=== PATIENT | male | born 1965 | race American Indian/Alaskan Native ===

== ENCOUNTER 2020-11-04 01:05 | Emergency (ER) | payer MEDICAID ==
[2020-11-04 01:54] VITALS: BP 130/63
--- NOTE | 2020-11-04 03:14 | XRay Report ---
CHEST 2 VIEWS INDICATION / CLINICAL INFORMATION: SYDNEY and cough. COMPARISON: None available. FINDINGS: SUPPORT DEVICES: None. HEART / MEDIASTINUM: No significant abnormality. LUNGS / PLEURA: No significant pulmonary or pleural abnormality. No pneumothorax. ADDITIONAL FINDINGS: Mild shaped thoracic scoliosis. IMPRESSION: 1. No acute findings. Signer Name: Corky Rueda MD Signed: 11/04/2020 3:10 AM Workstation Name: [id number]
[2020-11-04] MEDS ORDERED: predniSONE 20 MG TAB PO ONE (05:39)
[2020-11-04] MEDS ORDERED: diphenhydrAMINE 25 MG CAP PO ONE (05:39)
[2020-11-04] MEDS ORDERED: ALBUTEROL 2.5 MG/3 ML NEBU IH ONE (05:39)
[2020-11-04] MEDS ORDERED: ACETAMINOPHEN 500 MG TAB PO ONE (05:39)
--- NOTE | 2020-11-04 05:49 | Emergency Department Report ---
ED General Adult HPI - General Chief complaint: Upper Respiratory Infection Stated complaint: DIZZY,SYDNEY Time Seen by Provider: 11/04/20 05:33 Source: patient Mode of arrival: Ambulatory Limitations: No Limitations - History of Present Illness Initial comments: Patient is a 54-year-old -Nepalese male with a history of asthma CVA and dizziness for the past 5 years. Patient states he has experienced increased head congestion , sinus pain with postnasal drip and rhinorrhea for the past 3 days. Patient states sinuses are increasing dizziness. Patient is followed by primary care doctor Dr. CARMONA. There is no CP, SOB, no N/V, Fever or chills. Pt has had similar symptom exacerbations in past 5 years. pt drove self to ed, pt is a/o x 3, ambulatory with steady gait at this time. - Related Data Previous Rx's Medication Instructions Recorded Last Taken Type Albuterol Mdi (or & Nicu Only) 2 puff IH QID PRN #8.5 gram 11/04/20 Unknown Rx [ProAir HFA Inhaler] diphenhydrAMINE [Benadryl CAP] 25 mg PO Q8HR PRN #30 capsule 11/04/20 Unknown Rx predniSONE [Deltasone] 40 mg PO QDAY 5 Days #10 tab 11/04/20 Unknown Rx Allergies Allergy/AdvReac Type Severity Reaction Status Date / Time No Known Allergies Allergy Unverified 11/04/20 01:54 ED Review of Systems ROS: Stated complaint: DIZZY,SYDNEY Other details as noted in HPI Constitutional: denies: chills, fever Eyes: denies: eye pain, eye discharge, vision change ENT: congestion, other (sinus pain and pressure) Respiratory: denies: cough, shortness of breath, wheezing Cardiovascular: denies: chest pain, palpitations Endocrine: no symptoms reported Gastrointestinal: denies: abdominal pain, nausea, diarrhea Genitourinary: denies: urgency, dysuria Musculoskeletal: denies: back pain, joint swelling, arthralgia Skin: denies: rash, lesions Neurological: vertigo. denies: headache, weakness, paresthesias Psychiatric: anxiety. denies: depression Hematological/Lymphatic: denies: easy bleeding, easy bruising ED Past Medical Hx - Past Medical History Previous Medical History?: Yes Hx CVA: Yes Hx Asthma: Yes Additional medical history: Dizziness X 5 years. - Surgical History Past Surgical History?: No - Social History Smoking Status: Current Every Day Smoker Substance Use Type: None - Medications Home Medications: Home Medications Medication Instructions Recorded Confirmed Last Taken Type Albuterol Mdi (or & Nicu Only) 2 puff IH QID PRN #8.5 gram 11/04/20 Unknown Rx [ProAir HFA Inhaler] diphenhydrAMINE [Benadryl CAP] 25 mg PO Q8HR PRN #30 capsule 11/04/20 Unknown Rx predniSONE [Deltasone] 40 mg PO QDAY 5 Days #10 tab 11/04/20 Unknown Rx ED Physical Exam - General Limitations: No Limitations General appearance: alert, in no apparent distress - Head Head exam: Present: atraumatic, normocephalic - Eye Eye exam: Present: normal appearance, PERRL, EOMI Pupils: Present: normal accommodation - ENT ENT exam: Present: normal orophraynx, mucous membranes moist, other (turbinates boggy, clear post nasal drip, bilat maxillary sinus pain to palpation ) - Expanded ENT Exam Expanded Ear exam: Present: normal external inspection TM/Canal exam: Canal Tenderness: Right TM, Left TM Throat exam: Negative: tonsillar erythema, tonsillomegaly, tonsillar exudate - Neck Neck exam: Present: normal inspection, full ROM. Absent: tenderness, lymphadenopathy, thyromegaly - Respiratory Respiratory exam: Present: wheezes. Absent: respiratory distress, rales, rhonchi, stridor, chest wall tenderness, accessory muscle use, prolonged expiratory - Cardiovascular Cardiovascular Exam: Present: regular rate, normal rhythm, normal heart sounds. Absent: systolic murmur, diastolic murmur, rubs, gallop - GI/Abdominal GI/Abdominal exam: Present: soft, normal bowel sounds. Absent: distended, tenderness - Rectal Rectal exam: Present: deferred - Extremities Exam Extremities exam: Present: normal inspection, full ROM, normal capillary refill. Absent: tenderness - Back Exam Back exam: Present: normal inspection, full ROM. Absent: CVA tenderness (R), CVA tenderness (L) - Neurological Exam Neurological exam: Present: alert, oriented X3, CN II-XII intact, normal gait - Expanded Neurological Exam Expanded Patient oriented to: Present: person, place, time Speech: Present: fluid speech Best Eye Response ([place]an): (4) open spontaneously Best Motor Response ([place]): (6) obeys commands Best Verbal Response ([place]): (5) oriented Brandan Total: 15 - Psychiatric Psychiatric exam: Present: normal affect, normal mood - Skin Skin exam: Present: warm, dry, intact, normal color. Absent: rash ED Course Vital Signs 11/04/20 01:52 Temperature 98.3 F Pulse Rate 54 L Respiratory 18 Rate Blood Pressure 130/63 O2 Sat by Pulse 99 Oximetry ED Medical Decision Making - Medical Decision Making This is chronic dizziness vertigo, symptoms are improved with medications given in ED. Plan DC to home follow-up with Dr. Carmona, take medications as prescribed. Patient verbalized agreement and understanding of discharge plan. Patient will be DC'd home in stable condition at this time. Critical care attestation.: If time is entered above; I have spent that time in minutes in the direct care of this critically ill patient, excluding procedure time. ED Disposition Clinical Impression: URI (upper respiratory infection) Qualifiers: URI type: unspecified viral URI Qualified Code(s): J06.9 - Acute upper respiratory infection, unspecified Asthma Qualifiers: Asthma severity: moderate Asthma persistence: persistent Asthma complication type: unspecified Qualified Code(s): J45.40 - Moderate persistent asthma, uncomplicated Disposition: DC-01 TO HOME OR SELFCARE Is pt being admited?: No Does the pt Need Aspirin: No Condition: Stable Instructions: Upper Respiratory Infection, Adult, Avuk-qo-Chnj, Dizziness, Gyww-[id number], Asthma (ED) Additional Instructions: Take medications as prescribed. Follow-up with your doctor in 2 to 2 to 3 days, return to emergency room should symptoms worsen. Prescriptions: diphenhydrAMINE [Benadryl CAP] 25 mg PO Q8HR PRN #30 capsule PRN Reason: dizziness, sinus congestion predniSONE [Deltasone] 40 mg PO QDAY 5 Days #10 tab Albuterol Mdi (or & Nicu Only) [ProAir HFA Inhaler] 2 puff IH QID PRN #8.5 gram PRN Reason: Shortness Of Breath Referrals: PRIMARY MD RENATA [Primary Care Provider] - 3-5 Days YOLANDE CARMONA MD [Staff Physician] - 3-5 Days Forms: Work/School Release Form(ED) Time of Disposition: 06:31
== END 2020-11-04 06:53 | disposition home or self-care (01) ==
LOC: ED 01:05
DX: J06.9 Acute upper respiratory infection, unspecified (principal); J45.909 Unspecified asthma, uncomplicated; R09.81 Nasal congestion; L98.8 Other specified disorders of the skin and subcutaneous tissue; R09.82 Postnasal drip; I63.9 Cerebral infarction, unspecified; F17.200 Nicotine dependence, unspecified, uncomplicated
CPT/HCPCS: 71046; 94640; 99284; J7512

== ENCOUNTER 2021-04-09 15:17 | Emergency (ER) | payer MEDICAID ==
[2021-04-09 17:28] VITALS: BP 119/64
[2021-04-09] MEDS ORDERED: methylPREDNISolone Sod Succinate 125 MG/2 ML INJ IM ONE (22:04)
[2021-04-09] MEDS ORDERED: ACETAMINOPHEN 325 MG TAB PO ONE (22:04)
--- NOTE | 2021-04-09 22:26 | XRay Report ---
CHEST 2 VIEWS INDICATION: cough. COMPARISON: 11/04/2020 FINDINGS: Support devices: None. Heart: Within normal limits. Lungs/Pleura: No acute air space or interstitial disease. No significant pleural effusion. IMPRESSION: No acute findings. Signer Name: Juarez Merchant MD Signed: 04/09/2021 10:22 PM Workstation Name: [id number]
--- NOTE | 2021-04-09 22:34 | Emergency Department Report ---
- General Chief Complaint: Upper Respiratory Infection Stated Complaint: SORE THROAT Source: patient Mode of arrival: Ambulatory Limitations: No Limitations - History of Present Illness Initial Comments: Patient is a 55-year-old -Surinamese male with a history of CVA and asthma presents to the ED with complaint of acute onset persistent nasal and sinus congestion, frontal sinus pressure, persistent dry cough with intermittent wheezing and bilateral ear pain for the last 5 days. Patient states that he has been taking [id number] medications with no relief. Patient also complains of intermittent fever and chills with generalized fatigue. Patient states that no one else at home is at similar symptoms. Patient denies dizziness, syncope, nausea and vomiting or diarrhea, abdominal pain, chest pain, shortness of breath, change in vision, dysuria, urinary frequency and urgency or testicular pain and hematuria. MD Complaint: cough, sore throat, rhinorrhea, nasal congestion, sinus pain, other (bilateral ear pain) -: Sudden, days(s) (5) Severity: severe Severity scale (0 -10): 7 Quality: sharp, aching Consistency: constant Improves With: nothing Worsens With: nothing Associated Symptoms: denies other symptoms, fever, chills, myalgias, headache, rhinorrhea, nasal congestion, sore throat, cough. denies: diaphoresis, stiff neck, chest pain, abdominal pain, nausea, vomiting, diarrhea, rash, right sweats, weight loss Treatments Prior to Arrival: "cold medicine" - Related Data Previous Rx's Medication Instructions Recorded Last Taken Type Albuterol Mdi (or & Nicu Only) 2 puff IH QID PRN #8.5 gram 11/04/20 Unknown Rx [ProAir HFA Inhaler] diphenhydrAMINE [Benadryl CAP] 25 mg PO Q8HR PRN #30 capsule 11/04/20 Unknown Rx predniSONE [Deltasone] 40 mg PO QDAY 5 Days #10 tab 11/04/20 Unknown Rx Amoxicillin/Potassium Clav 1 each PO Q12H #20 tab 04/09/21 Unknown Rx [Augmentin 875-125 Tablet] Benzonatate [Tessalon Perles] 100 mg PO Q8HR #30 cap 04/09/21 Unknown Rx Cetirizine HCl [Zyrtec 10mg tab] 10 mg PO DAILY #30 tab 04/09/21 Unknown Rx Ibuprofen [Motrin] 600 mg PO Q8H PRN #30 tablet 04/09/21 Unknown Rx methylPREDNISolone [Medrol 4MG 4 mg PO DAILY #21 04/09/21 Unknown Rx DOSEPAK (21 tabs)] Allergies Allergy/AdvReac Type Severity Reaction Status Date / Time No Known Allergies Allergy Verified 04/09/21 17:23 ED Review of Systems ROS: Stated complaint: SORE THROAT Other details as noted in HPI Constitutional: chills, fever, malaise. denies: diaphoresis Eyes: denies: eye pain, eye discharge, vision change ENT: ear pain (bilaterally), congestion. denies: throat pain Respiratory: cough. denies: shortness of breath, wheezing Cardiovascular: denies: chest pain, palpitations Endocrine: no symptoms reported Gastrointestinal: denies: abdominal pain, nausea, vomiting, diarrhea Genitourinary: denies: urgency, dysuria Musculoskeletal: arthralgia, myalgia. denies: back pain, joint swelling Skin: denies: rash, lesions Neurological: headache. denies: weakness, paresthesias Psychiatric: denies: anxiety, depression Hematological/Lymphatic: denies: easy bleeding, easy bruising ED Past Medical Hx - Past Medical History Hx CVA: Yes Hx Asthma: Yes Additional medical history: Dizziness X 5 years. - Surgical History Past Surgical History?: No - Social History Smoking Status: Current Every Day Smoker Substance Use Type: None - Medications Home Medications: Home Medications Medication Instructions Recorded Confirmed Last Taken Type Albuterol Mdi (or & Nicu Only) 2 puff IH QID PRN #8.5 gram 11/04/20 Unknown Rx [ProAir HFA Inhaler] diphenhydrAMINE [Benadryl CAP] 25 mg PO Q8HR PRN #30 capsule 11/04/20 Unknown Rx predniSONE [Deltasone] 40 mg PO QDAY 5 Days #10 tab 11/04/20 Unknown Rx Amoxicillin/Potassium Clav 1 each PO Q12H #20 tab 04/09/21 Unknown Rx [Augmentin 875-125 Tablet] Benzonatate [Tessalon Perles] 100 mg PO Q8HR #30 cap 04/09/21 Unknown Rx Cetirizine HCl [Zyrtec 10mg tab] 10 mg PO DAILY #30 tab 04/09/21 Unknown Rx Ibuprofen [Motrin] 600 mg PO Q8H PRN #30 tablet 04/09/21 Unknown Rx methylPREDNISolone [Medrol 4MG 4 mg PO DAILY #21 04/09/21 Unknown Rx DOSEPAK (21 tabs)] ED Physical Exam - General Limitations: No Limitations General appearance: alert, in no apparent distress - Head Head exam: Present: atraumatic, normocephalic, normal inspection - Eye Eye exam: Present: normal appearance, PERRL, EOMI Pupils: Present: normal accommodation - ENT ENT exam: Present: normal orophraynx, mucous membranes moist (Grossly congested nasal passages; bilateral erythematous tympanic membranes), normal external ear exam, other (Grossly congested nasal passages; bilateral erythematous tympanic membranes) - Neck Neck exam: Present: normal inspection, full ROM. Absent: tenderness, lymphadenopathy - Respiratory Respiratory exam: Present: normal lung sounds bilaterally. Absent: respiratory distress, wheezes, rales, rhonchi, chest wall tenderness, decreased breath sounds - Cardiovascular Cardiovascular Exam: Present: regular rate, normal rhythm, normal heart sounds. Absent: systolic murmur, diastolic murmur, rubs, gallop - GI/Abdominal GI/Abdominal exam: Present: soft, normal bowel sounds. Absent: tenderness, guarding, rebound, hyperactive bowel sounds, hypoactive bowel sounds, organomegaly - Extremities Exam Extremities exam: Present: normal inspection, full ROM, normal capillary refill - Back Exam Back exam: Present: normal inspection, full ROM. Absent: tenderness, CVA tenderness (R), muscle spasm, paraspinal tenderness, vertebral tenderness - Neurological Exam Neurological exam: Present: alert, oriented X3, CN II-XII intact, normal gait, reflexes normal - Psychiatric Psychiatric exam: Present: normal affect, normal mood, anxious - Skin Skin exam: Present: warm, dry, intact, normal color. Absent: rash ED Course Vital Signs 04/09/21 17:26 Temperature 101.7 F H Pulse Rate 79 Respiratory 20 Rate Blood Pressure 119/64 O2 Sat by Pulse 96 Oximetry ED Medical Decision Making - Radiology Data Radiology results: report reviewed, image reviewed [facility] [address] [place] [address] XRay Report Signed Patient: REI VACA MR#: [id number] : 1965 Acct:[id number] Age/Sex: 55 / M ADM Date: 04/09/21 Loc: ED Attending Dr: Ordering Physician: AUSTEN HALL Date of Service: 04/09/21 Procedure(s): XR chest routine 2V Accession Number(s): [id number] cc: AUSTEN HALL Fluoro Time In Minutes: CHEST 2 VIEWS INDICATION: cough. COMPARISON: 11/04/2020 FINDINGS: Support devices: None. Heart: Within normal limits. Lungs/Pleura: No acute air space or interstitial disease. No significant pleural effusion. IMPRESSION: No acute findings. Signer Name: Juarez Merchant MD Signed: 04/09/2021 10:22 PM Workstation Name: [id number] Transcribed By: ES Dictated By: Juarez Merchant MD Electronically Authenticated By: Juarez Merchant MD Signed Date/Time: 04/09/212221 DD/ 20 TD/TT: Print Cancel - Medical Decision Making This is a 55-year-old -Surinamese male with a history of CVA and asthma presents to the ED with complaint of acute onset persistent nasal and sinus congestion, frontal sinus pressure, persistent dry cough with intermittent wheezing and bilateral ear pain for the last 5 days. Patient states that he has been taking [id number]-[id number] medications with no relief. Patient also complains of intermittent fever and chills with generalized fatigue. Patient states that no one else at home is at similar symptoms. In the ED, patient is alert and oriented x3 and is not in any distress but febrile in triage. Chest x-ray showed no acute cardiopulmonary abnormalities or pneumonitis. Patient was treated for fever and pain in the ED and on reevaluation, patient's fever resolved with medication. Patient felt better and was discharged home on medications and advised to follow-up with his primary care physician in 7 to 10 days for reevaluation or return to the ED immediately if symptoms get worse. - Differential Diagnosis bronchitis; URI; Otitis media; pharyngitis; pneumonia Critical care attestation.: If time is entered above; I have spent that time in minutes in the direct care of this critically ill patient, excluding procedure time. ED Disposition Clinical Impression: Acute upper respiratory infection, Acute otitis media with effusion of both ears Acute bronchitis Qualifiers: Bronchitis organism: other organism Qualified Code(s): J20.8 - Acute bronchitis due to other specified organisms Acute frontal sinusitis, unspecified Qualifiers: Recurrence: non-recurrent Qualified Code(s): J01.10 - Acute frontal sinusitis, unspecified Disposition: 01 HOME / SELF CARE / HOMELESS Is pt being admited?: No Does the pt Need Aspirin: No Condition: Stable Instructions: Otitis Media, Adult, Ryus-og-Rolg, Sinusitis, Adult, Josx-cb-Rcin, Acute Bronchitis, Adult, [id number]-[id number], Upper Respiratory Infection, Adult, [id number], Acute Bronchitis (ED) Additional Instructions: Chest x-ray showed no acute pulmonary abnormalities or pneumonitis. Therefore take medication with food, drink plenty fluids and follow-up with your primary care physician in 7 to 10 days for reevaluation. Return to the ED immediately if symptoms get worse. Prescriptions: Amoxicillin/Potassium Clav [Augmentin 875-125 Tablet] 1 each PO Q12H #20 tab methylPREDNISolone [Medrol 4MG DOSEPAK (21 tabs)] 4 mg PO DAILY #21 Ibuprofen [Motrin] 600 mg PO Q8H PRN #30 tablet PRN Reason: Pain Benzonatate [Tessalon Perles] 100 mg PO Q8HR #30 cap Cetirizine HCl [Zyrtec 10mg tab] 10 mg PO DAILY #30 tab Referrals: [facility] [Provider Group] - 7-10 days Time of Disposition: 22:39 Print Language: ROMANIAN
[2021-04-10] MEDS ORDERED: ACETAMINOPHEN 325 MG TAB PO ONE (00:30)
[2021-04-10] MEDS ORDERED: methylPREDNISolone Sod Succinate 125 MG/2 ML INJ IM ONE (00:31)
== END 2021-04-10 02:12 | disposition home or self-care (01) ==
LOC: ED 15:17
DX: J06.9 Acute upper respiratory infection, unspecified (principal); H65.93 Unspecified nonsuppurative otitis media, bilateral; J20.9 Acute bronchitis, unspecified; J01.10 Acute frontal sinusitis, unspecified; Z86.73 Personal history of transient ischemic attack (TIA), and cerebral infarction without residual deficits; J45.909 Unspecified asthma, uncomplicated; F17.200 Nicotine dependence, unspecified, uncomplicated
CPT/HCPCS: 71046; 96372; 99283; J2930